=== PATIENT | female | born 1950 | race Caucasian/White ===

== ENCOUNTER 2019-10-08 00:34 | Inpatient (IN) | payer MEDICARE ==
[~2019-10-08] VITALS: Ht 157.5 cm; Wt 66.7 kg
[2019-10-08] MEDS ORDERED: LOSA50 PO (02:33)
[2019-10-08] MEDS ORDERED: PREMPRO 0.3 MG1 EACH (02:34)
[2019-10-08] MEDS ORDERED: ALPRAZOLAM0.5 M1 PO (02:34)
[2019-10-08] MEDS ORDERED: HYDROCODONE-AC1 EAC7 PO (02:35)
[2019-10-08] MEDS ORDERED: GABAPENTIN600 MG PO (02:36)
[2019-10-08] MEDS ORDERED: CELE200 PO (02:36)
[2019-10-08] MEDS ORDERED: DIPATR PO (02:37)
[2019-10-08] MEDS ORDERED: Nexium40 MG PO (03:00)
[2019-10-08] MEDS ORDERED: CITA20 PO (03:01)
[2019-10-08] MEDS ORDERED: PREMPRO 0.625-1 EACH PO (03:01)
[2019-10-08 05:04] LABS: BASOPHILS ABSOLUTE AUTO 0.02 K/mm3 (0.00-0.23); BASOPHILS PERCENT AUTO 0 % (0-2); EOSINOPHILS ABSOLUTE AUTO 0.06 K/mm3 (0.00-0.68); EOSINOPHILS PERCENT AUTO 1 % (0-6); Hematocrit 37.8 % (33.0-51.0); Hemoglobin 12.3 g/dL (11.5-16.0); IMMATURE GRAN ABSOLUTE AUTO 0.03 K/mm3 (0.00-0.10); IMMATURE GRAN PERCENT AUTO 0 % (0-1); LYMPHOCYTES ABSOLUTE AUTO 1.67 K/mm3 (0.84-5.20); LYMPHOCYTES PERCENT AUTO 16 % (21-46); MONOCYTES ABSOLUTE AUTO 0.92 K/mm3 (0.16-1.47); MONOCYTES PERCENT AUTO 9 % (4-13); Mean Corpuscular HGB 30.4 pg (26.0-34.0); Mean Corpuscular HGB Conc 32.5 g/dL (31.5-36.5); Mean Corpuscular Volume 94 fL (80-100); Mean Platelet Volume 9.9 fL (9.1-12.4); NEUTROPHILS ABSOLUTE AUTO 7.58 K/mm3 (1.96-9.15); NEUTROPHILS PERCENT AUTO 74 % (41-73); Platelet Count 163 K/mm3 (150-400); RDW Standard Deviation 58.1 fL (35.1-46.3); Red Blood Cell Count 4.04 M/mm3 (3.80-5.20); White Blood Cell Count 10.28 K/mm3 (4.00-11.30)
[2019-10-08 05:18] LABS: International Normalized Ratio 1.01; Prothrombin Time Results 10.8 Sec (9.7-11.5)
--- NOTE | 2019-10-08 05:25 | NUR ---
RECEIVING AND CLOSING NOTE RECEIVED HAND OFF FROM Kendra MICHELE RN USING SBAR. TRANSPORTED TO ROOM 215 VIA STRETCHER WITH PERSONAL BELONGINGS. TRANSFERED TO BED WITH FULL STAFF ASSISTANCE, TOLERATED WELL. AAO X3, MUSA, FOLLOWS ALL COMMANDS. ORIENTED TO ROOM, CALL SYSTEM, AND POC, VOICES UNDERSTANDING. DR. SHULTZ WAS AT BEDSIDE SHORTLY AFTER ARRIVAL AND COMPLETED A FACE TO FACE, NEW ORDERS NOTED. ADMISSION ASSESSMENT COMPLETED. ABLE TO USE BEDPAN FOR ELIMINATION NEEDS. NS INFUSING AT 75ML/HR X1 BAG TO LEFT AC 18G PIV PER MD ORDERS AFTER CHANGING DRESSING. GIVEN FENT 50MG IVP FOR PAIN MANAGEMENT, VOICES RELIEF PER EMAR. DENIES FURTHER NEEDS OR WANTS AT THIS TIME. SAFETY MEASURES IN PLACE. WILL CONTINUE TO MONITOR AND GIVE HAND OFF TO ONCOMING SHIFT USIG SBAR DURING BEDSIDE REPORT.
[2019-10-08 05:32] LABS: Alanine Aminotransfer (ALT/SGP 18 U/L (12-78); Albumin, Blood 3.8 g/dL (3.4-5.0); Albumin/Globulin Ratio 1.3 (0.8-1.8); Alk Phos 38 U/L (50-136); Anion Gap 1 mmol/L (6-16); Aspartate Aminotrans (AST/SGOT 16 U/L (12-37); Bilirubin, Total 0.6 mg/dL (0.1-1.0); Blood Urea Nitrogen 16 mg/dL (8-24); CO2, Blood 33 mmol/L (21-32); Calcium, Blood 9.1 mg/dL (8.5-10.1); Chloride, Blood 105 mmol/L (98-108); Creatinine, Blood 0.43 mg/dL (0.40-1.00); Globulin, Blood 2.9 g/dL (2.2-4.0); Glomerular Filtration Rate >60 (60-); Glucose, Blood 105 mg/dL (70-99); Potassium, Blood 4.4 mmol/L (3.5-5.5); Sodium, Blood 139 mmol/L (136-145); Total Protein, Blood 6.7 g/dL (6.4-8.2)
--- NOTE | 2019-10-08 08:28 | NUR ---
DR REYES HERE TO SEE PT.
--- NOTE | 2019-10-08 12:35 | NUR ---
PT OUT OF ROOM FOR PROCEDURE IN OWN BED, FAMILY WITH PT.
--- NOTE | 2019-10-08 12:53 | NUR ---
History, Chart, Medications and Allergies reviewed before start of procedure. Patient confirms NPO status and agrees with scheduled surgery. Pre-Op teaching done. Pt verbalizes understanding.
--- NOTE | 2019-10-08 14:53 | NUR ---
10/08/19 1453 Marisel Plata VERIFICATIONS: EDIT CHART.
--- NOTE | 2019-10-08 16:00 | NUR ---
PT BACK FROM HAVING PROCEDURE. PT HAS AQUACELL TO L HIP. PT ABLE TO START TO MOVE HER LEGS. PT A/O, SLEEPY. PT FAMILY PRESENT. PT AWAKENS EASILY, VSS.
--- NOTE | 2019-10-08 18:00 | NUR ---
SHIFT SUMMARY PT HAD PROCEDURE TODAY. PT BEEN RESTING SINCE SURGERY. FAMILY IN ROOM. PT BEEN ASSISTED WITH ADL'S PRN. PT USING CALL LIGHT APPR.
--- NOTE | 2019-10-08 19:21 | NUR ---
PT UP TO USE BSC, REPORTS INCREASED PAIN. DR REYES NOTIFIED, SEE ORDERS. REPORT GIVEN TO HS RN.
--- NOTE | 2019-10-09 04:34 | NUR ---
SHIFT SUMMARY: PT POD#1 FOR L HIP REPAIR. AQUACEL DRESSING C/D/I WITH ICE PACK IN PLACE. PAIN BEING MANAGED WITH NORCO AND OXYCONTIN PER EMAR. PT OUT OF BED WITH ONE MINIMAL ASSIST TO BSC USING FWW+GB. SALINE LOCKED AND RADHA PO. DENIES N/V. VS WNL T/O SHIFT. PT RESTING AT THIS TIME.
--- NOTE | 2019-10-09 10:28 | NUR ---
DR JENSEN HERE TO SEE PT.
--- NOTE | 2019-10-09 16:15 | NUR ---
PT REQ TO HAVE DIFFERENT PAIN MEDICATION NORCO DOES NOT SEEM TO BE WORKING IT USUALLY DOES FOR HER. DR REYES NOTIFIED SEE ORDERS, WILL MED PRN.
--- NOTE | 2019-10-09 16:52 | NUR ---
SHIFT SUMMARY PT EATING AND DRINKING, VOIDING, PASSING GAS. PT WORKED WITH THERAPY. PT REQ TO HAVE DIFFERENT PAIN MEDICATION TO SEE IF IT WORKED BETTER. DR REYES NOTIFIED, SEE ORDERS. FAMILY IN TO SEE PT TODAY. PT PLEASANT AND COOPERATIVE.
--- NOTE | 2019-10-10 04:15 | NUR ---
SHIFT SUMMARY: PT POD#2 FOR L HIP NAILING. PAIN BEING MANAGED WITH PERCOCET AND OXYCONTIN PER EMAR. ICE PACK IN PLACE. RATING PAIN 8/10 WHICH PT REPORTS IS TOLERABLE FOR HER. AMBULATING TO BATHROOM WITH 1 ASSIST AND FWW. RADHA PO. DENIES N/V. POSSIBLE DISCHARGE TODAY WITH HOME HEALTH.
[2019-10-10] MEDS ORDERED: DOCU100 PO (12:09)
[2019-10-10] MEDS ORDERED: GABA300 PO (12:09)
[2019-10-10] MEDS ORDERED: GUAI600T33 PO (12:10)
[2019-10-10] MEDS ORDERED: OXYCODONE HCL E20 MG PO (12:11)
[2019-10-10] MEDS ORDERED: PERCOCET 10-321 EAC1 PO (12:12)
[2019-10-10] MEDS ORDERED: SENN187 PO (12:13)
[2019-10-10] MEDS ORDERED: XARELTO10 M1 PO (12:38)
--- NOTE | 2019-10-10 15:00 | NUR ---
DISCHARGE PT DC'D VIA OWN WC DELIVERED BY [facility]. SCRIPTS GIVEN AND CALLED INTO [facility] [address]. DRSGS GIVEN. CLEARED THERAPY FOR HOME WITH HH. HH AND F/U APPOINTMENT MADE, PT UNDERSTANDS.
== END 2019-10-10 15:00 | disposition home or self-care (01) | DRG 482 ==
LOC: ER 00:34 → SURS 03:13
PROVIDERS: Orthopaedic Surgery; ADMIT Internal Medicine
PROC: 0QS706Z Reposition Left Upper Femur with Intramedullary Internal Fixation Device, Open Approach (ICD-10-PCS; principal; 2019-10-08 13:30)
DX: S72.142A Displaced intertrochanteric fracture of left femur, initial encounter for closed fracture (principal); M81.0 Age-related osteoporosis without current pathological fracture; W19.XXXA Unspecified fall, initial encounter; J44.9 Chronic obstructive pulmonary disease, unspecified; I10 Essential (primary) hypertension; K21.9 Gastro-esophageal reflux disease without esophagitis; G62.9 Polyneuropathy, unspecified; Z87.891 Personal history of nicotine dependence
CPT/HCPCS: 36415; 71045; 73502; 73700; 80053; 85025; 85610; 93005; 93010; 96374-59; 96375-59; 96376-59; 97110; 97162; 97166; 97535; 99285-25; C1713; J0690; J1100; J1170; J2250; J2370; J2405; J2550; J2704; J3010; J7030; J7120; U0002